=== PATIENT | female | born 1960 | race Caucasian/White ===

== ENCOUNTER 2024-10-13 12:17 | Outpatient (CLI) | payer OTHER, SELFPAY ==
--- NOTE | 2024-10-13 13:40 | P.ANES_ITS ---
Anesthesia Charges Start Date/Time Anesthesia Start Date: 10/13/24 Anesthesia Start Time: 13:15 Stop Date/Time Anesthesia Stop Date: 10/13/24 Anesthesia Stop Time: 13:38 Coding CPT Codes CPT Codes: CHEYANNE LWR INTST NDRI NOS - [id number] ([id number]) P1 - NORMAL HEALTHY PATIENT, QK - INTERNAL MEDICINE DOCTOR 2-4 CNCRNT ANES PROC, QX - TOEING STOCKINGS SVC W/ MED DIRECTION
--- NOTE | 2024-10-13 13:40 | W.ANESCHARGE ---
Anesthesia Charges Start Date/Time Anesthesia Start Date: 10/13/24 Anesthesia Start Time: 13:15 Stop Date/Time Anesthesia Stop Date: 10/13/24 Anesthesia Stop Time: 13:38 Coding CPT Codes CPT Codes: CHEYANNE LWR INTST NDND NOS - [id number] ([id number]) P1 - NORMAL HEALTHY PATIENT, QK - FOREST PRODUCTS GATHERER 2-4 CNCRNT ANES PROC, QX - MARKET RESEARCH ANALYST SVC W/ MED DIRECTION
--- NOTE | 2024-10-13 14:04 | P.ANES_ITS ---
Anesthesia Charges Start Date/Time Anesthesia Start Date: 10/13/24 Anesthesia Start Time: 13:15 Stop Date/Time Anesthesia Stop Date: 10/13/24 Anesthesia Stop Time: 13:38 Coding CPT Codes CPT Codes: CHEYANNE LWR INTST NDCT NOS - [id number] ([id number]) P1 - NORMAL HEALTHY PATIENT, QK - SALESPERSON MEN'S HATS 2-4 CNCRNT ANES PROC, QX - CONDITIONER TUMBLER OPERATOR SVC W/ MED DIRECTION
--- NOTE | 2024-10-13 14:04 | W.ANESCHARGE ---
Anesthesia Charges Start Date/Time Anesthesia Start Date: 10/13/24 Anesthesia Start Time: 13:15 Stop Date/Time Anesthesia Stop Date: 10/13/24 Anesthesia Stop Time: 13:38 Coding CPT Codes CPT Codes: CHEYANNE LWR INTST NDMI NOS - [id number] ([id number]) P1 - NORMAL HEALTHY PATIENT, QK - MAIN LINE ASSEMBLER 2-4 CNCRNT ANES PROC, QX - ORDER CONTROL CLERK BLOOD BANK SVC W/ MED DIRECTION
== END 2024-10-13 12:18 | disposition home or self-care (01) ==
LOC: OP CLINIC 12:21
PROVIDERS: PCP Family Medicine; Visit Provider Internal Medicine Gastroenterology
DX: Z12.11 Encounter for screening for malignant neoplasm of colon (principal); D12.4 Benign neoplasm of descending colon; Z86.0101 Personal history of adenomatous and serrated colon polyps
CPT/HCPCS: 00811; 45380; 88305; J2704